=== PATIENT | female | born 1995 | race African-American/Black ===

== ENCOUNTER 2023-06-13 13:08 | Outpatient (AMB) | payer OTHER, SELFPAY ==
[2023-06-13 13:14] VITALS: BP 104/66; PULSE 90; RESP 13; TEMP 36.4; O2SAT 99; BMI 22.4
--- NOTE | 2023-06-13 13:14 | A.OFFPC_ITS ---
Vital Signs 06/13/23 13:14 Height 5 ft 2 in Weight 122 lb 4 oz BMI 22.4 BP 104/66 Blood Pressure Location Lt brachial Position Sitting Respiration 13 Pulse 90 Pulse Source Pulse Oximeter Temp 97.5 F Temp Source Temporal Artery Scan Pulse Oximetry (%) 99 Oxygen Delivery Method Room Air Intake Visit Reasons: PRODUCT SUPPORT ENGINEER-RequestingPE, see comments Intake Note: Patient would like a papsmear done and order put in for comprehensive bloodwork. Patient would brendan like a refill on escitalopram. House Calls Nurse Practitioner Required: No Accompanied by: self Allergies No Known Allergies Allergy (Verified 06/13/23 13:20) Tobacco use date assessed: 06/13/23 Dental Screening Dental Screen Date: 06/13/23 Did you have a dental visit in the last 12 months?: Yes Did you have a dental problem in the last 6 months where you did not have access to dental care?: No Was dental information given to patient?: Patient has dentist HPI PRODUCT SUPPORT ENGINEER-RequestingPE, see comments HPI Details New patient Prior PCP:?PCP in [place] prior to last year Last office visit/CPE: < 1 year ago Acute issue(s): Establishing Care PMHx: Anxiety, Low Vitamin D SurgHx: None FHx: Mom: HTN, DM2, Anx/Depression. Brother: Asthma SocHx: Nonsmoker. EtOH socially 1 once a month. No drugs PFSH Medical History (Updated 06/13/23 @ 13:35 by Alcides Montanez) Anxiety Surgical History (Updated 06/13/23 @ 13:26 by Lorenza Philippe MA) No pertinent past surgical history Family History (Updated 06/13/23 @ 13:25 by Lorenza Philippe MA) Mother High blood pressure Diabetes Psychiatric disorder Paternal Grandmother Diabetes Maternal Grandfather High blood pressure Social History Housing: Apartment Patient Tobacco Use Status: Never used Tobacco e-Cigarette/Vaping Use: Never Used service: Yes Current occupational status: student Current occupation: [employer] student Cognitive needs: No Hearing needs: No Vision needs: No Questionnaire PHQ-9 Over the last 2 weeks, how often have you been bothered by any of the following problems? 1. Little interest or pleasure in doing things: not at all 2. Feeling down, depressed, or hopeless: not at all 3. Trouble falling or staying asleep, or sleeping too much: not at all 4. Feeling tired or having little energy: not at all 5. Poor appetite or overeating: not at all 6. Feeling bad about yourself - or that you are a failure or have let yourself or your family down: not at all 7. Trouble concentrating on things, such as reading the newspaper or watching television: not at all 8. Moving or speaking so slowly that other people could have noticed. Or the opposite - being so fidgety or restless that you have been moving around a lot more than usual: not at all 9. Thoughts that you would be better off or of hurting yourself in some way: not at all Total score: 0 Depression Screening Interpretation: Negative Depression Screening Done: Yes 28905 - PHQ-9 Billing: Yes Source: Developed by Drs. Alexx Thomas, Ольга Coronado, Carrington Milan and colleagues, with an educational samantha from [employer]. Thrive Questionnaire Date Thrive assessed: 06/13/23 I am a: Patient What is your living situation today?: I have a steady place to live Within the past 12 months, did the food you bought not last and you didn't have the money to get more?: Never true Within the past 12 months, did you worry whether your food would run out before you got money to buy more?: Never true Do you have trouble paying for medicines?: No Do you have trouble getting transportation to medical appointments?: No Do you have trouble paying your heating and electricity bill?: No Do you have trouble taking care of your child, family member or friend?: No Do you have trouble with day-to-day activities such as bathing, preparing meals, shopping, managing finances, etc.?: No Are you currently unemployed and looking for a job?: No Are you interested in more education?: No Please select the resources that you would like help with: None Currently or been in a relationship where the following occur: no concerns reported AUDIT C Alcohol Use Questionnaire (AUDIT-C) 1. How often do you have a drink containing alcohol?: Monthly or less 2. How many drinks containing alcohol do you have on a typical day when you are drinking?: 1 or 2 3. How often do you have six or more drinks on one occasion?: Never Total Score: 1 KATHARINE-7 AMB Questionnaire KATHARINE-7 Date KATHARINE - 7 assessed: 06/13/23 Feeling nervous, anxious, or on edge: 0 = Not at all Not being able to stop or control worryin = Not at all Worrying too much about different things: 0 = Not at all Trouble relaxin = Not at all Being so restless that it is hard to sit still: 0 = Not at all Becoming easily annoyed or irritable: 0 = Not at all Feeling afraid as if something awful might happen: 0 = Not at all Total KATHARINE-7 score (0-4 normal; 5-9 mild; 10-14 moderate; 15-21 severe): 0 Source: Developed by Drs. Alexx Thomas, Ольга Coronado, Carrington Milan and colleagues, with an educational samantha from [employer]. KATHARINE-7 Assessment Billing KATHARINE-7 Assessment Tool: KATHARINE-7 Assessment 77067 Review of Systems Const Denies chills, Denies fatigue, Denies fever(s), Denies headache(s) and Denies weakness ENT Denies dizziness and Denies headache(s) Card Denies chest pain, Denies lightheadedness, Denies dyspnea and Denies other (Palpitations) Resp Denies cough, Denies dyspnea, Denies wheezing and Denies other ( shortness of breath) Musc Denies numbness and Denies tingling Neuro Denies dizziness, Denies headache(s), Denies numbness, Denies tingling, Denies paresthesias and Denies weakness Psych Denies anxiety and Denies depression Endo Denies fatigue Aller/Immun Denies wheezing Physical exam (Primary Care) Vital Signs: Last Vital Signs Temp 97.5 F 06/13/23 13:14 Pulse 90 06/13/23 13:14 Resp 13 06/13/23 13:14 BP 104/66 06/13/23 13:14 Pulse Ox 99 06/13/23 13:14 Oxygen Delivery Method Room Air 06/13/23 13:14 BMI result Body Mass Index 22.4 Depression Screening Interpretation: Negative Currently or been in a relationship where the following occur: no concerns reported Const General: no acute distress and well developed Nutritional Appearance: well nourished Orientation/consciousness: patient oriented x3 HENMT Head: Yes normocephalic and Yes atraumatic Eyes General: appearance normal, both eyes and all related structures Pupils: Equal, round and reactive pupils present EOM: EOMs intact bilaterally Resp Effort & Inspection: normal respiratory effort Auscultation: clear to auscultation bilaterally Cardio Rate: regular rate Rhythm: regular rhythm Heart sounds: S1 normal heart sound present, S2 normal heart sound present, no gallops, no murmurs and no rubs Neuro General: patient oriented x3 and gait normal Cranial nerves: Yes Equal, round and reactive pupils present Psych Affect: normal affect Assessment and Plan Assessment & Plan (1) Anxiety: Code(s): F41.9 - Anxiety disorder, unspecified Plan: Stable?on?escitalopram. Will?continue?this?medication Advised?that?if?she?would?like?help?connecting?with?a?therapist?we?can?help?her? with?that. (2) Low vitamin D level: Code(s): R79.89 - Other specified abnormal findings of blood chemistry Plan: Check?vitamin-D?level (3) Laboratory exam ordered as part of routine general medical examination: Code(s): Z00.00 - Encounter for general adult medical examination without abnormal findings Plan: Check?labs (4) Screening for cervical cancer: Code(s): Z12.4 - Encounter for screening for malignant neoplasm of cervix Plan: Referred?to?sr. consultant Orders: Orders Comprehensive [place]. Panel Fast Today Z00.00 - Encounter for general adult medical examination without abnormal findings Lipid Panel Today Z00.00 - Encounter for general adult medical examination without abnormal findings TSH reflex Free T4 Today Z00.00 - Encounter for general adult medical examination without abnormal findings UA and rflx microscopic Today Z00.00 - Encounter for general adult medical examination without abnormal findings CT NG by PCR Today Z11.3 - Encounter for screening for infections with a predominantly sexual mode of transmission Vitamin D 25-OH Total Today E55.9 - Vitamin D deficiency, unspecified Microalbumin, Random (w Creat) Today I10 - Essential (primary) hypertension Hepatitis B,C Profile Today Z11.3 - Encounter for screening for infections with a predominantly sexual mode of transmission Hemoglobin A1c Today R73.01 - Impaired fasting glucose Syphilis Screen Today Z11.3 - Encounter for screening for infections with a predominantly sexual mode of transmission Complete Blood Count Auto Diff Today Z00.00 - Encounter for general adult medical examination without abnormal findings Referrals [facility] Referral Z12.4 - Encounter for screening for malignant neoplasm of cervix Medications: New escitalopram oxalate 10 mg PO DAILY 90 tabs 3RF 90 days Coding Level of Care Code New Pt Level 3 (94574) Diagnoses Anxiety F41.9 Low vitamin D level R79.89 Laboratory exam ordered as part of routine general medical examination Z00.00 Screening for cervical cancer Z12.4 Additional Codes KATHARINE-7 Assessment Billing - KATHARINE-7 Assessment Tool: KATHARINE-7 Assessment [id number] ([id number])
== END 2023-06-13 13:55 | disposition home or self-care (01) ==
PROVIDERS: PCP Hospitalist; Visit Provider Family Medicine
DX: F41.9 Anxiety disorder, unspecified (principal); R79.89 Other specified abnormal findings of blood chemistry
CPT/HCPCS: 99203

== ENCOUNTER 2023-09-24 14:06 | Outpatient (AMB) | payer OTHER, SELFPAY ==
--- NOTE | 2023-09-24 14:09 | A.OFFVIS_ITS ---
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 Her last Pap smear about 4 years ago she is sexually active with her boyfriend when they get together he lives in [place]. She is open to if it occurs she just saw her primary recently and has a whole lot of lab work ordered for her to get. Her only concern is that she almost always bleeds very lightly when she is midcycle ovulating it has happened for years about 4 years ago her crane helper in [place] had her do some blood tests and an ultrasound and it did get a little pretty much always happens when she ovulates and it has a little heavier or more noticeable now it is bright red when it comes. [facility] Medical History Anxiety Surgical History No pertinent past surgical history Family History Mother High blood pressure Diabetes Psychiatric disorder Paternal Grandmother Diabetes Maternal Grandfather High blood pressure Social History Housing: Apartment Patient Tobacco Use Status: Never used Tobacco e-Cigarette/Vaping Use: Never Used service: Yes Current occupational status: student Current occupation: [employer] student Cognitive needs: No Hearing needs: No Vision needs: No Female Reproductive History Menstrual Age of Menarche: 10 Duration of menses: 3-5 days Date of last menstrual period: 09/08/23 control method: none Total pregnancies: 0 History of abnormal pap smear: No Physical Exam Vital Signs: Last Vital Signs BP 110/62 09/24/23 14:11 BMI result Body Mass Index 22.5 Const General: healthy appearing, comfortable, no acute distress, well developed and alert Nutritional Appearance: average body habitus Orientation/consciousness: patient oriented x3 Limitations: no limitations HEENT Head: Yes normocephalic Neck Neck: Yes normal visual inspection Thyroid: Thyroid normal Chest Chest palpation & inspection: normal inspection of the chest Breast/axilla inspection: normal inspection of the breasts and normal inspection of the axillae Breast/axilla palpation: normal palpation of the breasts and normal palpation of the axillae Resp Effort & Inspection: normal respiratory effort GI Inspection: Yes normal to inspection, No Abdominal wall edema and No distended Palpation (GI): Soft to palpation and nontender Other: Patient reports being midcycle in ovulating now and she can always feel it on the right-hand side. She is bleeding lightly as she does with every ovulation. Like clear blood as in light menses in vagina cervix is pink nulliparous smooth mobile nontender uterus midposition to anteverted mobile nontender adnexa nontender good tone with Kegel. General: Yes bladder normal to palpation External Female Exam: normal external appearance and normal appearance of the urethra Speculum Exam - Vagina: normal appearance of the vagina, normal palpation and normal vaginal discharge Speculum Exam - Cervix: normal appearance of the cervix, normal palpation and nontender Bimanual exam- vagina & uterus: normal bimanual exam, normal palpation, uterine size normal, bladder normal to palpation, consistency normal, normal palpation, uterine mobility normal, uterine shape normal, No Cervical tenderness present, non-tender and no cervical motion tenderness Bimanual Exam- Adnexa, other: normal adnexae, no masses, normal and No adnexal tenderness Neuro General: patient oriented x3 Assessment & Plan Assessment & Plan (1) Bleeding associated with ovulation: Comment: Has done so for years. Will attempt to have ultrasound done during ovulation, follow-up after. Code(s): N92.3 - Ovulation bleeding (2) Well woman exam with routine gynecological exam: Code(s): Z01.419 - Encounter for gynecological examination (general) (routine) without abnormal findings (3) Screening for malignant neoplasm of cervix: Code(s): Z12.4 - Encounter for screening for malignant neoplasm of cervix (4) Encounter for screening examination for sexually transmitted disease: Code(s): Z11.3 - Encounter for screening for infections with a predominantly sexual mode of transmission Plan -----Discussed in this visit the following: healthy balanced diet, regular and consistent exercise, getting recommended health screens, doing the best she can for her particular health concerns, kegel exercises, pap smear screening and followup recommendations, mammography screening and SBE, normal changes in cycles in her life stage--- . Discussed her history of bleeding with ovulation. Offered ultrasound to assess. Will attempt to have her schedule it when she know she is ovulating to have best opportunity to assess what is going on. Discussed the normal ranges of possibilities. Pap smear was done if this 1 is normal her next would be due in 3 years. She wondered if it was okay to advocate for yearly Paps and I said she could advocate for it, but it might not be covered by her insurance. She did not think she would gotten the Gardasil vaccine I asked her to consider that and she will think about it. Orders: Orders US pelvic and transvaginal Today N92.3 - Ovulation bleeding Coding Level of Care Code New Pt Prev Care 18-39yr([id number] Diagnoses Bleeding associated with ovulation N92.3 Well woman exam with routine gynecological exam Z01.419 Screening for malignant neoplasm of cervix Z12.4 Encounter for screening examination for sexually transmitted disease Z11.3
[2023-09-24 14:11] VITALS: BP 110/62; BMI 22.5
== END 2023-09-24 15:10 | disposition home or self-care (01) ==
PROVIDERS: PCP Family Medicine; Visit Provider Advanced Practice Midwife
DX: Z01.419 Encounter for gynecological examination (general) (routine) without abnormal findings (principal); N92.3 Ovulation bleeding; Z12.4 Encounter for screening for malignant neoplasm of cervix; Z11.3 Encounter for screening for infections with a predominantly sexual mode of transmission
CPT/HCPCS: 99385

== ENCOUNTER 2023-09-24 14:06 | Outpatient (REF) | payer OTHER, SELFPAY ==
[2023-09-25 11:32] LABS: CT PCR NOT DETECTED (Not Detect.); NG PCR NOT DETECTED (Not Detect.)
[2023-09-25 15:42] LABS: BV Int Neg Control Negative (Negative); BV Int Pos Control Positive (Positive)
== END 2023-09-24 14:07 | disposition home or self-care (01) ==
LOC: HO.LNP 14:06
PROVIDERS: PCP Family Medicine; Visit Provider Advanced Practice Midwife
DX: Z01.419 Encounter for gynecological examination (general) (routine) without abnormal findings (principal); Z11.3 Encounter for screening for infections with a predominantly sexual mode of transmission; N92.3 Ovulation bleeding
CPT/HCPCS: 0353U; 87480; 87510; 87660; 88142; 99385

== ENCOUNTER 2023-09-25 10:54 | Outpatient (REF) | payer OTHER, SELFPAY ==
--- NOTE | ~2023-09-25 | US_ITS ---
EXAMINATION: US PELVIS COMPLETE CLINICAL INFORMATION: Respiratory bleeding; the last menstrual period is not provided. COMPARISON: None. TECHNIQUE: Transabdominal and transvaginal imaging were performed. FINDINGS: The uterus is of normal size and echogenicity, measuring 8.0 x 3.7 x 5.4 cm. The uterus is anteverted and anteflexed. A regular homogeneous endometrium is identified measuring 1.6 cm. Nabothian cysts are seen within the cervix. FIBROIDS: There are 2 fibroids seen. 1. Location: Rightward fundus, subserosal. Size: 3.3 x 2.2 x 2.2 cm. Fibroid characteristics: Heterogeneous echotexture. 2. Location: Upper leftward body, myometrial. Size: 1.6 x 1.8 x 1.8 cm. Fibroid characteristics: Heterogeneous echotexture. Both ovaries are of normal size and echogenicity. The ovaries show normal doppler flow. The right ovary measures 4.5 x 1.9 x 3.0 cm for a volume of 13.4 mL. There are physiologic follicles. The left ovary measures 5.0 x 2.6 x 2.9 cm for a volume of 19.7 mL. A 1.9 x 1.3 x 1.6 cm corpus luteum cyst is seen. There is a small amount of free fluid in the cul-de-sac. A 1.2 cm right paraovarian cyst is seen. No adnexal solid mass is seen. US/US pelvic and transvaginal IMPRESSION: 1. There are uterine fibroids, as detailed. 2. The endometrial stripe thickness is upper normal. 3. Nabothian cysts are seen within the cervix. 4. A 1.9 cm left ovarian corpus luteum cyst is incidentally noted, for which no imaging follow-up is recommended. 5. A 1.2 cm right paraovarian cyst is seen.
== END 2023-09-25 10:55 | disposition home or self-care (01) ==
LOC: HO.US 10:54
PROVIDERS: PCP Family Medicine; Visit Provider Advanced Practice Midwife
DX: N92.3 Ovulation bleeding (principal)
CPT/HCPCS: 76830; 76856

== ENCOUNTER 2023-10-08 11:35 | Outpatient (AMB) | payer OTHER, SELFPAY ==
--- NOTE | 2023-10-08 11:35 | A.OFFVIS_ITS ---
Intake Intake Visit Reasons: TV ultrasound results School Photographer Required: No Allergies No Known Allergies Allergy (Verified 10/08/23 11:36) Medication List - Last Reconciled 10/08/23 by Crystal Thorpe CNM escitalopram oxalate 10 mg PO DAILY 90 days Is last menstrual period known: Yes Last menstrual period: 10/07/23 Post menopausal: No HPI TV ultrasound results HPI Details This is a tele visit to review patient's ultrasound results. She had an ultrasound done because she had been noticing some midcycle spotting when she ovulates. We reviewed the ultrasound in detail as well as her menses she started her period yesterday and she is on it now. PFSH Medical History Anxiety Surgical History No pertinent past surgical history Family History Mother High blood pressure Diabetes Psychiatric disorder Paternal Grandmother Diabetes Maternal Grandfather High blood pressure Social History Housing: Apartment Patient Tobacco Use Status: Never used Tobacco e-Cigarette/Vaping Use: Never Used service: Yes Current occupational status: student Current occupation: [employer] student Cognitive needs: No Hearing needs: No Vision needs: No Female Reproductive History Menstrual Age of Menarche: 10 Date of last menstrual period: 10/07/23 control method: none Results Reviewed Results Reviewed: [address] [address] Ultrasound Report Signed Patient: Santa Rodríguez MR#: [id number] : 1995 Acct:[id number] Age/Sex: 27 / F ADM Date: 09/25/23 Loc: HO.US Attending Dr: Crystal Thorpe CNM Ordering Physician: Crystal Thorpe CNM Date of Service: 09/25/23 Procedure(s): US pelvic and transvaginal Accession Number(s): [id number] cc: Amado Starks MD; Crystal Thorpe CNM~ EXAMINATION: US PELVIS COMPLETE CLINICAL INFORMATION: Respiratory bleeding; the last menstrual period is not provided. COMPARISON: None. TECHNIQUE: Transabdominal and transvaginal imaging were performed. FINDINGS: The uterus is of normal size and echogenicity, measuring 8.0 x 3.7 x 5.4 cm. The uterus is anteverted and anteflexed. A regular homogeneous endometrium is identified measuring 1.6 cm. Nabothian cysts are seen within the cervix. FIBROIDS: There are 2 fibroids seen. 1. Location: Rightward fundus, subserosal. Size: 3.3 x 2.2 x 2.2 cm. Fibroid characteristics: Heterogeneous echotexture. 2. Location: Upper leftward body, myometrial. Size: 1.6 x 1.8 x 1.8 cm. Fibroid characteristics: Heterogeneous echotexture. Both ovaries are of normal size and echogenicity. The ovaries show normal doppler flow. The right ovary measures 4.5 x 1.9 x 3.0 cm for a volume of 13.4 mL. There are physiologic follicles. The left ovary measures 5.0 x 2.6 x 2.9 cm for a volume of 19.7 mL. A 1.9 x 1.3 x 1.6 cm corpus luteum cyst is seen. There is a small amount of free fluid in the cul-de-sac. A 1.2 cm right paraovarian cyst is seen. No adnexal solid mass is seen. US/US pelvic and transvaginal IMPRESSION: 1. There are uterine fibroids, as detailed. 2. The endometrial stripe thickness is upper normal. 3. Nabothian cysts are seen within the cervix. 4. A 1.9 cm left ovarian corpus luteum cyst is incidentally noted, for which no imaging follow-up is recommended. 5. A 1.2 cm right paraovarian cyst is seen. Dictated By: Jeremi Tsang MD Signed By: <Electronically signed by Jeremi Tsang MD in OV> 09/30/23 0949 DD/ 1129 TD/TT: Heel Cementer: MITCHEL Name: Santa Rodríguez Age/Sex: 27/F Attending: Crystal Thorpe CNM : 1995 Submitted by: Crystal Thorpe CNM Copies to: Amado Starks MD MR #: [id number] Status: DEP REF Collected: 09/24/23 Location: [facility] Received: 09/25/23 Interpretation Satisfactory for evaluation. Negative for intraepithelial lesion or malignancy. Clinical Information LMP: 09/08/23 Previous PAP test: Unknown date/findings Material Received ThinPrep-Cervical Copies To Amado Starks MD [address] [place] [address] [place] [address] Crystal Thorpe CNM [address] [place] [address] [place] [address] Electronically Signed By: INDU Light (ASCP) 10/06/23 1320 The Pap Test is a screening procedure with the inherent possibility of both false negative and false positive results. Results should be interpreted in the context of historic and current clinical findings. Reliability of the Pap Test is enhanced by performing the test on a regular repetitive basis. Patient: Santa Rodríguez Age/Sex: 27/F [id number] MR#: [id number] Page 1 of 1 Assessment & Plan Assessment & Plan (1) Screening for malignant neoplasm of cervix: Comment: 09/24/2023 Pap is negative.. Code(s): Z12.4 - Encounter for screening for malignant neoplasm of cervix (2) Bleeding associated with ovulation: Comment: Has done so for years. Will attempt to have ultrasound done during ovulation, follow-up after. Code(s): N92.3 - Ovulation bleeding (3) Fibroids: Code(s): D21.9 - Benign neoplasm of connective and other soft tissue, unspecified Plan Reviewed her ultrasound with her in detail she has not on the portal yet but when she gets on it she will be able to see her results herself. Reviewed that fibroids sometimes can get larger and some of the treatments that are available but that with them being this size and not causing her any undue pain or difficulty that usually nothing would be done at this time. Reviewed the paraovarian cyst and the follicles in her 1 ovary and the corpus luteum cyst in the other and the normal nabothian cysts as well her thickened endometrium was consistent with her had building up to her menses which she just started yesterday. I also reviewed her Pap smear results which had come in. Offered her the option of having a further discussion with Dr. 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 She has no further questions at this time. Telehealth Telehealth Location of provider rendering services: practice address Location of patient: address on file Patient Identification confirmed using: Name, : Yes Telehealth method: video Patient verbally consented to treatment: Yes Patient verbally consented to billing insurance company: Yes Patient informed of any privacy concerns related to visit: Yes Coding Level of Care Code Tele Est Pt Level 3 (88650) Diagnoses Screening for malignant neoplasm of cervix Z12.4 Bleeding associated with ovulation N92.3 Fibroids D21.9 Time Spent (min) 25 Comment 1cr/19 video w pt/5 charting
== END 2023-10-08 12:55 | disposition home or self-care (01) ==
LOC: HO.HWS 11:35
PROVIDERS: PCP Family Medicine; Visit Provider Advanced Practice Midwife
DX: Z12.4 Encounter for screening for malignant neoplasm of cervix (principal); N92.3 Ovulation bleeding; D21.9 Benign neoplasm of connective and other soft tissue, unspecified
CPT/HCPCS: 99213

== ENCOUNTER → 2023-10-08 11:35 | Outpatient (BNVA) | payer OTHER, SELFPAY | PROVIDERS: PCP Family Medicine; Visit Provider Advanced Practice Midwife ==

== ENCOUNTER 2023-10-14 09:51 | Outpatient (REF) | payer OTHER, SELFPAY ==
[2023-10-14 12:27] LABS: MANUAL DIFF FLAG NO
[2023-10-14 12:36] LABS: Basophils Percent Auto 1.1 % (0-2); Eosinophils Absolute Auto 0.1 X10*3/uL (0.0-0.4); Eosinophils Percent Auto 3.3 % (0-4); Hematocrit 36.6 % (37.0-47.0); Hemoglobin 12.4 g/dl (12.0-16.0); Lymphocytes Absolute Auto 2.1 X10*3/uL (1.2-4.9); Lymphocytes Percent Auto 58.6 % (20-40); Mean Corpuscular HGB Conc 33.9 g/dl (31.0-35.0); Mean Corpuscular Hemoglobin 31.2 pg (27.0-33.0); Mean Platelet Volume 11.5 fL (9.4-12.3); Monocytes Absolute Auto 0.2 X10*3/uL (0.1-1.2); Monocytes Percent Auto 6.7 % (2-11); Neutrophils Absolute Auto 1.1 x10*3/uL (2.0-8.3); Neutrophils Percent Auto 30.3 % (45-73); Platelet Count 265 X10*3/uL (160-400); Red Blood Count 3.98 X10*6/uL (4.20-5.50); Red Cell Distribution Width 13.2 % (11.0-16.0); White Blood Count 3.6 X10*3/uL (4.8-10.8)
[2023-10-14 12:40] LABS: Estimated Average Glucose 114 mg/dL; Hemoglobin A1c % 5.6 % (<6.0)
[2023-10-14 13:06] LABS: Alanine Aminotransferase 9 U/L (0-31); Albumin Level 4.5 g/dL (3.5-5.0); Alkaline Phosphatase 54 U/L (39-117); Anion Gap 11 (12-20); Aspartate Amino Transferase 15 U/L (5-31); Bilirubin Total 0.8 mg/dL (0.0-1.0); Blood Urea Nitrogen 13 mg/dL (9-16); Calcium 9.3 mg/dL (8.4-10.2); Carbon Dioxide 28 mmol/L (22-29); Chloride 106 mmol/L (96-108); Cholesterol 171 mg/dL (<200); Estimated Glomerular Filt Rate > 60; Glucose Fasting 84 mg/dL (60-99); HDL Cholesterol 52 mg/dL (>40); LDL Cholesterol Calculated 104 mg/dL (<100); Potassium 4.1 mmol/L (3.3-5.1); Sodium 141 mmol/L (135-145); Triglycerides 75 mg/dL (<150)
[2023-10-14 13:21] LABS: Syphilis Screen Nonreactive (Nonreactive)
[2023-10-14 13:22] LABS: TSH reflex Free T4 1.13 uIU/mL (0.32-4.0); Vitamin D 25-OH Total 20.5 ng/mL (>30)
[2023-10-14 13:23] LABS: HBS Num1 307.26 mIU/mL (0-7.99); HBc Num1 0.19 S/CO (0.00-0.79); HBsAGNum1 0.42 S/CO (0.00-0.99); Hepatitis B Core Antibody Nonreactive (Nonreactive); Hepatitis B Surface Antigen Negative (Negative); ~HepC Num1 0.39 S/CO (0.00-0.79); ~Hepatitis B Surface Antibody REACTIVE (Nonreactive); ~Hepatitis C Antibody Nonreactive (Nonreactive)
== END 2023-10-14 09:52 | disposition home or self-care (01) ==
LOC: HO.HKASLDS 09:51
PROVIDERS: Visit Provider Family Medicine
DX: Z00.00 Encounter for general adult medical examination without abnormal findings (principal); E55.9 Vitamin D deficiency, unspecified; R73.01 Impaired fasting glucose; Z11.3 Encounter for screening for infections with a predominantly sexual mode of transmission
CPT/HCPCS: 36415; 80053; 80061; 82306; 83036; 84443; 85025; 86704; 86706; 86780; 86803; 87340

== ENCOUNTER 2023-10-17 10:56 | Outpatient (AMB) | payer OTHER, SELFPAY ==
--- NOTE | 2023-10-17 12:03 | A.OFFPC_ITS ---
Vital Signs 10/17/23 12:05 Height 5 ft 2 in Weight 123 lb 4 oz BMI 22.5 BP 110/68 Blood Pressure Location Lt brachial Position Sitting Pulse 86 Pulse Source Pulse Oximeter Pulse Oximetry (%) 98 Oxygen Delivery Method Room Air Intake Visit Reasons: Extended exam with f/u labs and health maint. Intake Note: Patient is here for extended exam with follow up on labs and health maintenance. Allergies No Known Allergies Allergy (Verified 10/17/23 12:06) Medication List - Last Reconciled 10/17/23 by Amado Starks MD escitalopram oxalate 10 mg PO DAILY 90 days Tobacco use date assessed: 10/17/23 Dental Screening Dental Screen Date: 10/17/23 Did you have a dental visit in the last 12 months?: Yes Did you have a dental problem in the last 6 months where you did not have access to dental care?: No Was dental information given to patient?: Patient has dentist HPI Extended exam with f/u labs and health maint. HPI Details 27 y/o female presents for an extended e xam with f/u labs and health maintenance. Labs were drawn 10/14/23. Reviewed labs with pt. Mild anemia. Triglycerides 75. TC 171. LDL 104. HDL 52. HDL 52. PFSH Medical History Anxiety Surgical History No pertinent past surgical history Family History Mother High blood pressure Diabetes Psychiatric disorder Paternal Grandmother Diabetes Maternal Grandfather High blood pressure Social History Housing: Apartment Patient Tobacco Use Status: Never used Tobacco e-Cigarette/Vaping Use: Never Used service: Yes Current occupational status: student Current occupation: [employer] student Cognitive needs: No Hearing needs: No Vision needs: No Female Reproductive History Menstrual Age of Menarche: 10 Questionnaire PHQ-9 Over the last 2 weeks, how often have you been bothered by any of the following problems? 1. Little interest or pleasure in doing things: not at all 2. Feeling down, depressed, or hopeless: not at all 3. Trouble falling or staying asleep, or sleeping too much: more than half the days 4. Feeling tired or having little energy: nearly every day 5. Poor appetite or overeating: nearly every day 6. Feeling bad about yourself - or that you are a failure or have let yourself or your family down: not at all 7. Trouble concentrating on things, such as reading the newspaper or watching television: not at all 8. Moving or speaking so slowly that other people could have noticed. Or the opposite - being so fidgety or restless that you have been moving around a lot more than usual: not at all 9. Thoughts that you would be better off or of hurting yourself in some way: not at all Total score: 8 Depression Screening Interpretation: Positive (Current?medication - escitalopram) Depression Screening Done: Yes 71884 - PHQ-9 Billing: Yes Source: Developed by Drs. Alexx Thomas, Ольга Coronado, Carrington Milan and colleagues, with an educational samantha from [employer]. Thrive Questionnaire Date Thrive assessed: 10/17/23 I am a: Patient What is your living situation today?: I have a steady place to live Within the past 12 months, did the food you bought not last and you didn't have the money to get more?: Never true Within the past 12 months, did you worry whether your food would run out before you got money to buy more?: Never true Do you have trouble paying for medicines?: No Do you have trouble getting transportation to medical appointments?: No Do you have trouble paying your heating and electricity bill?: No Do you have trouble taking care of your child, family member or friend?: No Do you have trouble with day-to-day activities such as bathing, preparing meals, shopping, managing finances, etc.?: No Are you currently unemployed and looking for a job?: Yes Are you interested in more education?: Yes THRIVE Score: 0 AUDIT C Alcohol Use Questionnaire (AUDIT-C) 1. How often do you have a drink containing alcohol?: Never 3. How often do you have six or more drinks on one occasion?: Never Total Score: 0 KATHARINE-7 AMB Questionnaire KATHARINE-7 Date KATHARINE - 7 assessed: 10/17/23 Feeling nervous, anxious, or on edge: 0 = Not at all Not being able to stop or control worryin = Not at all Worrying too much about different things: 0 = Not at all Trouble relaxin = Not at all Being so restless that it is hard to sit still: 0 = Not at all Becoming easily annoyed or irritable: 1 = Several days Feeling afraid as if something awful might happen: 0 = Not at all Total KATHARINE-7 score (0-4 normal; 5-9 mild; 10-14 moderate; 15-21 severe): 1 Source: Developed by Drs. Alexx Thomas, Ольга Coronado, Carrington Milan and colleagues, with an educational samantha from [employer]. KATHARINE-7 Assessment Billing KATHARINE-7 Assessment Tool: KATHARINE-7 Assessment 62139 Review of Systems Const Denies chills, Denies fatigue, Denies fever(s), Denies headache(s) and Denies weakness Eyes Denies change in vision ENT Denies dizziness, Denies headache(s), Denies hearing loss, Denies nasal congestion, Denies sinus pain, Denies sinus pressure and Denies sore throat Card Denies chest pain, Denies lightheadedness, Denies dyspnea and Denies other (palpitations) Resp Denies cough, Denies dyspnea and Denies wheezing GI Denies abdominal pain, Denies melena, Denies hematochezia, Denies change in bowel habits, Denies dyspepsia and Denies nausea Denies hematuria and Denies dysuria Musc Denies abnormal gait, Denies myalgias, Denies arthralgias, Denies numbness and Denies tingling Skin/Breast Denies rash, Denies unusual bruising and Denies wounds Neuro Denies abnormal gait, Denies dizziness, Denies headache(s), Denies memory loss, Denies numbness, Denies Sensory deficit (Neuro), Denies tingling and Denies weakness Psych Denies anxiety, Denies depression and Denies memory loss Endo Denies cold intolerance, Denies fatigue, Denies heat intolerance, Denies polydipsia and Denies polyuria Tim/Lymph Denies easy bleeding and Denies easy bruising Aller/Immun Denies wheezing Physical exam (Primary Care) Vital Signs: Last Vital Signs Pulse 86 10/17/23 12:05 BP 110/68 10/17/23 12:05 Pulse Ox 98 10/17/23 12:05 Oxygen Delivery Method Room Air 10/17/23 12:05 BMI result Body Mass Index 22.5 Tobacco/Smoking Status: Tobacco use Status Tobacco use date assessed 10/17/23 10/17/23 12:08 Patient Tobacco Use Status Never used Tobacco 10/17/23 12:05 e-Cigarette/Vaping Use Never Used 10/17/23 12:05 PHQ-9: PHQ-9 Score PHQ-9: Total score 8 10/17/23 12:19 Depression Screening Interpretation: Positive (Current?medication - escitalopram) Thrive Assessment: Date of Thrive Assessment Date Thrive assessed 10/17/23 10/17/23 12:19 Const General: no acute distress, well developed, alert and awake Nutritional Appearance: well nourished Orientation/consciousness: patient oriented x3 HENMT Head: Yes normocephalic and Yes atraumatic Ears: hearing grossly normal bilaterally and TM's normal bilaterally General nose exam: Normal external nose present and Normal nares present Mouth: Normal oral and palatal mucosa present and moist mucous membranes Teeth and gingiva: dentition normal Throat: Yes posterior oropharynx normal Eyes General: appearance normal, both eyes and all related structures Pupils: Equal, round and reactive pupils present and Pupil accommodation reflex normal EOM: EOMs intact bilaterally Neck Neck: Yes normal visual inspection, Yes no lymphadenopathy and Yes trachea midline Thyroid: Thyroid normal Carotids: no bruits Lymphatic: no lymphadenopathy noted Chest Chest palpation & inspection: normal inspection of the chest Resp Effort & Inspection: normal respiratory effort Auscultation: clear to auscultation bilaterally Cardio Rate: regular rate Rhythm: regular rhythm Heart sounds: S1 normal heart sound present, S2 normal heart sound present, no gallops, no murmurs and no rubs Bruits: no abdominal aortic bruits and no carotid bruits GI Palpation (GI): No Abdominal aortic bruit present, Soft to palpation, nontender, No hepatosplenomegaly present and No Rebound tenderness present Auscultation: normal bowel sounds General: Yes no CVA tenderness Back/Spine/Pelvis Back: no CVA tenderness Cervical Spine: cervical ROM normal and No Cervical spine tenderness Thoracic/Lumbar Spine: thoraco-lumbar ROM normal, No pain with thoraco-lumbar ROM, No thoracic spinal tenderness and No lumbar spinal tenderness Skin Lesions: no lesions Rashes: no rashes Trauma: no lacerations or abrasions Wounds: no wounds Nails: normal Neuro General: patient oriented x3 Cranial nerves: Yes Equal, round and reactive pupils present Cognition (Neuro): normal cognition Gait exam (Neuro): Normal gait present Motor exam (neuro): 5/5 motor strength present throughout Sensory Exam: No Sensory deficit (Neuro) Deep tendon reflexes (DTR's): Right patellar reflex intensity grade: 2+ and Left patellar reflex intensity grade: 2+ Extrem General: Yes normal to inspection and No edema Psych Appearance: grossly normal Affect: normal affect Attitude: cooperative Thought process: Normal thought process present Assessment and Plan Assessment & Plan (1) Mild anemia: Code(s): D64.9 - Anemia, unspecified Plan: Very?mild?anemia Asymptomatic Likely?secondary?to?normal?menstruation (2) Adult general medical examination: Code(s): Z00.00 - Encounter for general adult medical examination without abnormal findings Plan: 27-year-old?female?presents?for?complete?physical?exam Exam?within?normal?limits (3) Screening for malignant neoplasm of cervix: Comment: 09/24/2023 Pap is negative.. Code(s): Z12.4 - Encounter for screening for malignant neoplasm of cervix Plan: Negative?Pap?smear?with?her?sand screener?last?month Follow-up?with?sand screener?as?recommended (4) Low vitamin D level: Code(s): R79.89 - Other specified abnormal findings of blood chemistry Plan: Mild/moderately?low?vitamin-D?level Will?send?script Medications: New cholecalciferol (vitamin D3) 50 mcg PO DAILY 90 days 90 caps 2RF Coding Level of Care Code Est Pt Level 4 (34096) Diagnoses Mild anemia D64.9 Adult general medical examination Z00.00 Screening for malignant neoplasm of cervix Z12.4 Low vitamin D level R79.89 Additional Codes KATHARINE-7 Assessment Billing - KATHARINE-7 Assessment Tool: KATHARINE-7 Assessment 89117 ([id number])
[2023-10-17 12:05] VITALS: BP 110/68; PULSE 86; O2SAT 98; BMI 22.5
== END 2023-10-17 12:45 | disposition home or self-care (01) ==
PROVIDERS: PCP Family Medicine; Visit Provider Family Medicine
DX: Z00.00 Encounter for general adult medical examination without abnormal findings (principal); D64.9 Anemia, unspecified; R79.89 Other specified abnormal findings of blood chemistry
CPT/HCPCS: 99213; 99395